=== PATIENT | female | born 1985 | race Hispanic/Latino ===

== ENCOUNTER 2018-08-21 16:32 | Emergency (ER) | payer OTHER ==
[~2018-08-21 16:32] MED LIST: 0.9% SODIUM CHLORIDE 1000 ML IV BAG IV ONE
[2018-08-21] MEDS ORDERED: ONDANSETRON HCL 4 MG/2 ML VIAL ONE (16:49)
[2018-08-21] MEDS ORDERED: KETOROLAC TROMETHAMINE 30MG/ML ONE (16:49)
[2018-08-21 17:10] LABS: EOSINOPHILS % (AUTO) 0.8 % (0.0-8.0); HEMATOCRIT 41.3 % (36-48); LYMPHOCYTES % (AUTO) 16.7 % (21.0-51.0); MEAN CORPUSCULAR HEMOGLOBIN 30.4 pg (27.0-33.0); MEAN CORPUSCULAR HGB CONC 34.6 g/dL (32.0-36.0); MEAN CORPUSCULAR VOLUME 87.9 fL (79-99); MONOCYTES % (AUTO) 6.6 % (3.0-13.0); NEUTROPHILS % (AUTO) 73.9 % (40.0-77.0); PLATELET COUNT (AUTO) 173 K/uL (130-400); RED BLOOD CELL COUNT(AUTO) 4.69 MIL/uL (4.00-5.50); RED CELL DISTRIBUTION WIDTH 12.8 % (11.0-15.5); WHITE BLOOD COUNT (AUTO) 10.8 K/uL (4.8-10.8)
[2018-08-21 17:20] LABS: APPEARANCE,URINE Cloudy (CLEAR); BILIRUBIN,URINE Negative (NEGATIVE); COLOR,URINE Yellow (YELLOW); GLUCOSE, URINE (UA) Negative (NEGATIVE); KETONES,URINE Negative (NEGATIVE); LEUKOCYTE ESTERASE ,URINE Negative (NEGATIVE); NITRATE,URINE Negative (NEGATIVE); OCCULT BLOOD,URINE Negative (NEGATIVE); PROTEIN,URINE Negative (NEGATIVE)
[2018-08-21 17:25] LABS: HCG,QUAL RESULT NEGATIVE (NEGATIVE)
[2018-08-21] MEDS ORDERED: DICYCLOMINE HCL 10 MG/ML 2ML AMP IM ONE (17:27)
[2018-08-21 17:37] LABS: BACTERIA,URINE Few /HPF (None Seen); RBC,URINE 0-1 /HPF (0-1); WBC,URINE 0-1 /HPF (0-1)
[2018-08-21 17:39] LABS: SQUAMOUS EPITHELIAL CELL,UR Few /HPF (0-2)
[2018-08-21 17:53] LABS: CREATININE 0.9 mg/dL (0.5-1.5); POTASSIUM 4.1 mmol/L (3.5-5.1)
[2018-08-21 17:58] LABS: ALBUMIN 3.9 g/dL (3.5-5.0); TOTAL PROTEIN, SERUM 6.8 g/dL (6.0-8.3)
== END 2018-08-21 18:48 | disposition home or self-care (01) ==
LOC: EDH 16:32
DX: K80.80 Other cholelithiasis without obstruction (principal); Z98.890 Other specified postprocedural states
CPT/HCPCS: 36415; 74018; 76705; 80053; 81001; 81025; 83690; 85025; 96361 ×2; 96372; 96374; 96375; 99284; J0500; J1885; J2405; J7030